=== PATIENT | male | born 1960 | race Caucasian/White ===

== ENCOUNTER 2019-12-13 01:02 | Emergency (ER) | payer OTHER ==
[~2019-12-13] VITALS: Ht 198.1 cm; Wt 113.4 kg
[2019-12-13 01:22] VITALS: BP 138/93
== END 2019-12-13 02:57 | disposition left against medical advice (07) ==
LOC: ER 01:05
DX: H57.89 Other specified disorders of eye and adnexa (principal); Z53.21 Procedure and treatment not carried out due to patient leaving prior to being seen by health care provider